=== PATIENT | female | born 1955 ===

== ENCOUNTER → 2020-03-18 | Outpatient (CLI) | payer MEDICARE, OTHER ==
--- NOTE | 2020-03-21 10:21 | PE ---
Nuclear medicine PET/CT HISTORY: Solitary pulmonary nodule, initial Patient received 12.5 mCi F-18 FDG intravenously in delayed scanning was performed from the skull bas e to the mid thighs. Localization and attenuation correction CT scan was performed. Correlation to prior nuclear medicine PET/CT 06/19/2014 neck And chest: There is no suspicious hypermetabolic uptake. No pleural or pericardial effusion. No evident lung mass. There is no cervical or supraclavicular adenopathy. No mediastinal, axillary, or h ilar adenopathy. Coronary artery calcifications are present. Descending thoracic aorta measures 4.2 c m at the hiatus. Proximal descending aorta measures 3.7 cm. ABDOMEN: Low dense focus within the left lobe of the liver measures 16 mm. Smaller focus is present i mmediately adjacent, no suspicious uptake. Cystic foci also associated with the kidneys at the upper poles likely represent simple cysts, the larger on the right measures 6 cm. Hypodense luminal areas w ithin the small bowel may be related to radiodense medication. No ascites. Osseous structures show probable posttraumatic change to the pubic bones. Sclerotic density also pres ent within the sacroiliac regions may be related to remote trauma. No suspicious uptake. Vertebral pl asty change present within the second lumbar vertebral body. IMPRESSION: No suspicious uptake. Aortic aneurysm.
== END | disposition home or self-care (01) ==
LOC: RADPETMAIN 09:40
PROVIDERS: ATTEND Internal Medicine Critical Care Medicine
DX: I71.9 Aortic aneurysm of unspecified site, without rupture (principal); R91.1 Solitary pulmonary nodule
CPT/HCPCS: 78815; A9552